=== PATIENT | female | born 1930 | race Caucasian/White ===

== ENCOUNTER → 2018-02-22 | Emergency (ER) | payer OTHER ==
[~2018-02-22] VITALS: Ht 157.5 cm; Wt 50.8 kg
[~2018-02-22] MED LIST: ALPRAZOLAM1 MG; AMLODIPINE BESYL5 MG; ARICEPT5 MG; CARDURA1 MG; HYDROCHLOROTH12.5 M1; IRBESARTAN300 MG; LABETALOL HCL100 MG; LOTREL 5-10 MG1 CAP; MEMANTINE HCL5 MG; MICARDIS80 MG; PEPCID40 MG PO; PLAVIX75 MG; SYNTHROID; SYNTHROID50 MCG; ZOFRAN4 MG PO
== END | disposition home or self-care (01) ==
LOC: ER 13:50
DX: K52.89 Other specified noninfective gastroenteritis and colitis (principal)

== ENCOUNTER 2018-07-04 05:45 | Inpatient (IN) | payer OTHER ==
[~2018-07-04] VITALS: Ht 165.1 cm; Wt 68.0 kg
[~2018-07-04 05:45] MED LIST changes: -AMLODIPINE BESYL5 MG; +AMLODIPINE BESYL5 MG PO
[2018-07-07] MEDS ORDERED: ALPRAZOLAM0.5 MG PO (09:35)
[2018-07-07] MEDS ORDERED: CLOPIDOGREL BIS75 MG PO (09:35)
[2018-07-07] MEDS ORDERED: Coreg 25MG TABLET PO (09:35)
[2018-07-07] MEDS ORDERED: FUROSEMIDE10 MG/1 M1 PO (09:35)
[2018-07-07] MEDS ORDERED: CARdura 4MG TABLET PO (09:35)
[2018-07-07] MEDS ORDERED: LEVOTHYROXINE50 MCG PO (09:35)
== END 2018-07-07 14:23 | disposition home or self-care (01) | DRG 193 ==
LOC: ER 05:45 → SEC-K 07:18 → MEDI 07:18
PROC: 4A033R1 Measurement of Arterial Saturation, Peripheral, Percutaneous Approach (ICD-10-PCS; principal; 2018-07-04)
PROC: 3E0F7GC Introduction of Other Therapeutic Substance into Respiratory Tract, Via Natural or Artificial Opening (ICD-10-PCS; 2018-07-04)
PROC: BB24ZZZ Computerized Tomography (CT Scan) of Bilateral Lungs (ICD-10-PCS; 2018-07-05)
PROC: B246ZZZ Ultrasonography of Right and Left Heart (ICD-10-PCS; 2018-07-05)
PROC: BW28ZZZ Computerized Tomography (CT Scan) of Head (ICD-10-PCS; 2018-07-07)
DX: J18.0 Bronchopneumonia, unspecified organism (principal); I50.33 Acute on chronic diastolic (congestive) heart failure; J91.8 Pleural effusion in other conditions classified elsewhere; R06.03 Acute respiratory distress; E03.8 Other specified hypothyroidism; I11.0 Hypertensive heart disease with heart failure; Z78.1 Physical restraint status